=== PATIENT | male | born 1970 | race Two or more races ===

== ENCOUNTER 2020-03-14 05:57 | Day surgery (SDC) | payer OTHER ==
[~2020-03-14 05:57] MED LIST: CANDESARTAN-HC1 EAC1 PO; CRESTOR10 MG PO
[2020-03-14] MEDS ORDERED: ULTRACET PO (11:55)
[2020-03-14] MEDS ORDERED: SURFAK240 M1 PO (11:55)
[2020-03-14] MEDS ORDERED: NEURONTIN600 M1 PO (11:55)
[2020-03-14] MEDS ORDERED: POLY119PG PO (11:55)
== END 2020-03-14 16:05 | disposition home or self-care (01) ==
LOC: CIR.AMB 05:57
PROVIDERS: ATTEND Surgery
DX: K43.6 Other and unspecified ventral hernia with obstruction, without gangrene (principal); K40.30 Unilateral inguinal hernia, with obstruction, without gangrene, not specified as recurrent; K42.0 Umbilical hernia with obstruction, without gangrene